=== PATIENT | male | born 1940 | race Caucasian/White ===

== ENCOUNTER 2020-12-11 09:13 | Outpatient (CLI) | payer MEDICARE, OTHER, SELFPAY | END 2020-12-11 09:14 | disposition home or self-care (01) | LOC: ANHCOVIDVC 09:13 | PROVIDERS: PCP Family Medicine | DX: Z23 Encounter for immunization (principal) | CPT/HCPCS: 0001A; 91300 ==

== ENCOUNTER 2021-01-01 09:21 | Outpatient (CLI) | payer MEDICARE, OTHER, SELFPAY | END 2021-01-01 09:22 | disposition home or self-care (01) | LOC: ANHCOVIDVC 09:21 | PROVIDERS: PCP Family Medicine | DX: Z23 Encounter for immunization (principal) | CPT/HCPCS: 0002A; 91300 ==

== ENCOUNTER 2022-07-03 19:26 | Emergency (ER) | payer MEDICARE, OTHER, SELFPAY | END 2022-07-03 19:37 | disposition left against medical advice (07) | PROVIDERS: Emergency Provider Nurse Practitioner Family; PCP Family Medicine | DX: Z53.21 Procedure and treatment not carried out due to patient leaving prior to being seen by health care provider (principal) | CPT/HCPCS: 99199 ==

== ENCOUNTER → 2023-07-05 14:55 | Outpatient (CLI) | payer MEDICARE, OTHER, SELFPAY ==
--- NOTE | ~2023-07-05 | XR_ITS ---
EXAMINATION: XR hip LT 2V w AP pelvis INDICATION: Left hip pain TECHNIQUE: AP view of the pelvis and three views of the left hip are obtained. COMPARISON: None available FINDINGS: Bone alignment is normal. There is no fracture. Calcified atherosclerosis is noted. There i s severe spondylosis of the lower lumbar spine. Calcifications are noted in the prostate. IMPRESSION: 1. No acute osseous abnormality. Reviewed, dictated and finalized at location F.
== END ==
PROVIDERS: PCP Family Medicine; Visit Provider Family Medicine
DX: M25.552 Pain in left hip (principal)
CPT/HCPCS: 73502

== ENCOUNTER 2024-05-19 14:32 | Emergency (ER) | payer MEDICARE, OTHER, SELFPAY | END 2024-05-19 17:42 | disposition left against medical advice (07) | LOC: ANHED 17:36 | PROVIDERS: Emergency Provider Physician Assistant; PCP Family Medicine | DX: R10.10 Upper abdominal pain, unspecified (principal) | CPT/HCPCS: 99199 ==